=== PATIENT | male | born 1995 | race American Indian/Alaskan Native ===

== ENCOUNTER 2020-10-25 18:36 | Emergency (ER) | payer SELFPAY ==
[2020-10-25 18:43] VITALS: BP 135/79
--- NOTE | 2020-10-25 19:49 | Emergency Department Report ---
Chief Complaint: Urogenital-Male Stated Complaint: DISCHARGE Time Seen by Provider: 10/25/20 19:43 - HPI History of Present Illness: 24-year-old male patient presents to emergency department with complaints of penile discharge for 1 week. States he experienced similar symptoms on 1 prior occasion, when he was treated for STD. Patient is concerned about STD exposure. States he did not want to wait at the health department. No other symptoms. - ROS Review of Systems: GENERAL: Negative for fever. CARDIOVASCULAR: Negative for chest pain. PULMONARY: Negative for shortness of breath. GASTROINTESTINAL: Negative for abdominal pain. GENITOURINARY: Positive for penile discharge. MUSCULOSKELETAL: Negative for back pain. NEUROLOGICAL: Negative for headache. INTEGUMENTARY: Negative for rash. - Exam Vital Signs: Vital Signs 10/25/20 18:41 Temperature 98.5 F Pulse Rate 82 Respiratory 16 Rate Blood Pressure 135/79 O2 Sat by Pulse 96 Oximetry Physical Exam: General: Awake, appropriately interactive, no acute distress. Neck: Supple. Full range of motion intact. Cardiovascular: Normal peripheral perfusion. Pulmonary: No respiratory distress. Patient is speaking normally without use of accessory muscles. Skin: No apparent rashes or lesions. Neurological: No facial asymmetry. Speech is clear. Follows commands. Patient is alert and oriented. Musculoskeletal: Moves all four extremities spontaneously with normal range of motion. Psych: Cooperative. Appropriate mood and affect. MSE screening note: Focused history and physical exam performed. Due to findings the following was ordered: ED Medical Decision Making - Medical Decision Making Patient presents emergency department requesting STD testing and treatment. He is afebrile, hemodynamically stable, no distress. No abdominal pain or testicular pain/swelling. STD testing is not available in the emergency department. There is no clinical indication for emergent medical treatment or further diagnostic work-up on an emergent basis at this time. Patient will be discharged home with referral to both primary care provider and local health department. Emphasized importance of using barrier protection when engaging in sexual intercourse. Patient expressed understanding and is agreeable to plan of care. Strict return precautions provided. BILLING/CODING: This patient encounter does not represent a certified medical emergency. ED Disposition for MSE Clinical Impression: Encounter for medical screening examination Disposition: TO HOME OR SELFCARE Is pt being admited?: No Does the pt Need Aspirin: No Condition: Stable Instructions: Medical Screening Exam Additional Instructions: Please use barrier protection when engaging in sexual intercourse. Follow-up with primary care provider and/or [facility] for appropriate testing and treatment. Return to the emergency department immediately for new or worsening symptoms. Referrals: [facility] [Provider Group] - 3-5 Days [facility] [Outside] - 3-5 Days Time of Disposition: 19:48
== END 2020-10-25 19:55 | disposition home or self-care (01) ==
LOC: ED 18:36
DX: R36.9 Urethral discharge, unspecified (principal); Z13.9 Encounter for screening, unspecified
CPT/HCPCS: 99282